=== PATIENT | female | born 2000 | race African-American/Black ===

== ENCOUNTER 2019-08-02 01:15 | Emergency (ER) | payer MEDICAID ==
--- NOTE | 2019-08-02 03:42 | ED ---
Head Injury - HPI Summary HPI Summary: Patient is a 18 y/o F presenting to [facility] with complaints of head injury. She states that she was ice-skating earlier today and attempted to do a trick. She fell backwards, landed on her buttock, and struck the back of her head. Incident occurred around 2245 08/01/19. She denies LOC and reports that she got back up immediately. Patient states that her mom advised her to come to ED. Some nausea noted. She denies neck pain, memory loss, difficulty with ambulation and vomiting. Patient is not on blood thinners. On triage, pain is rated 2/10, nothing is noted to aggravate/alleviate Sx. Home medications and allergies are reviewed. - History Of Current Complaint Chief Complaint: EDHeadInjury Stated Complaint: HEAD INJURY PER PT Time Seen by Provider: 08/02/19 03:21 Hx Obtained From: Patient Mechanism Of Injury: Fall From A Standing Position Onset/Duration: Still Present Onset of Pain: Prior to Arrival Severity Initially: Mild Pain Intensity: 2 Pain Scale Used: 0-10 Numeric Location of Head Injury: Occipital Location: Discrete At: - posterior head Aggravating Factor(s): Other: - nothing Alleviating Factor(s): Other: - nothing Associated Signs And Symptoms: Nausea, Other: - negative - LOC, neck pain, memory loss, difficulty with ambulation and vomiting; positive - fall, head injury - Allergies/Home Medications Allergies/Adverse Reactions: Allergies Allergy/AdvReac Type Severity Reaction Status Date / Time No Known Allergies Allergy Verified 08/02/19 01:18 Home Medications: Home Medications Albuterol HFA INHALER* [Ventolin HFA Inhaler*] 1 puff INH Q4H PRN 08/02/19 [ History Confirmed 08/02/19] Fluticasone Propionate Diskus [Flovent Diskus] 2 puff IH SEE INSTRUCTIONS PRN [History Confirmed 08/02/19] PMH/Surg Hx/FS Hx/Imm Hx Respiratory History: Reports: Hx Asthma Sensory History: Denies: Hx Legally Blind, Hx Deafness Opthamlomology History: Denies: Hx Legally Blind Infectious Disease History: No Infectious Disease History: Denies: Traveled Outside the [place] in Last 30 Days - Family History Known Family History: Negative: Blood Disorder - Social History Alcohol Use: Occasionally Substance Use Type: Reports: Marijuana Smoking Status (MU): Current Some Day Smoker Review of Systems Positive: Nausea. Negative: Vomiting Musculoskeletal: Other - positive - fall; negative - neck pain Neurological: Other - positive - head injury; negative - memory loss, difficulty with ambulation All Other Systems Reviewed And Are Negative: Yes Physical Exam - Summary Physical Exam Summary: Appearance: Well-appearing, Well-nourished, lying in bed comfortably Skin: Warm, dry, no obvious rash Eyes: sclera anicteric, no conjunctival pallor ENT: mucous membranes moist, pharynx appears normal Neck: Supple, nontender Respiratory: Clear to auscultation, no signs of respiratory distress Cardiovascular: Normal S1, S2. No murmurs. Normal distal pulses in tibial and radial bilaterally. Abdomen: Soft, nontender, normal active bowel sounds present Musculoskeletal: Normal, Strength/ROM Intact Neurological: A&Ox3, awake and alert, mentation is normal, speech is fluent and appropriate Psychiatric: affect is normal, does not appear anxious or depressed Triage Information Reviewed: Yes Vital Signs On Initial Exam: Initial Vitals Temp Pulse Resp BP Pulse Ox 97.6 F 80 16 123/103 99 08/02/19 01:17 08/02/19 01:17 08/02/19 01:17 08/02/19 01:17 08/02/19 01:17 Vital Signs Reviewed: Yes Diagnostics - Vital Signs Vital Signs Temp Pulse Resp BP Pulse Ox 08/02/19 01:17 97.6 F 80 16 123/103 99 - Laboratory Lab Statement: Any lab studies that have been ordered have been reviewed, and results considered in the medical decision making process. Head Injury Course/Dx Course Of Treatment: Patient is a 18 y/o F presenting to [facility] with complaints of head injury. She states that she was ice-skating earlier today and attempted to do a trick. She fell backwards, landed on her buttock, and struck the back of her head. Incident occurred around 2245 08/01/19. She denies LOC and reports that she got back up immediately. Patient states that her mom advised her to come to ED. Some nausea noted. She denies neck pain, memory loss, difficulty with ambulation and vomiting. Patient is not on blood thinners. Physical exam was unremarkable. Patient's Sx were discussed with patient. Patient is alert and oriented x3 and reports no vomiting or photophobia. No neurological deficits noted. Patient was discharged to home. Strict return precautions were given. She is agreeable with discharge. - Diagnoses Provider Diagnoses: Head injury Discharge ED - Sign-Out/Discharge Documenting (check all that apply): Patient Departure - discharge Patient Received Moderate/Deep Sedation with Procedure: No - Discharge Plan Condition: Stable Disposition: HOME Patient Education Materials: Head Injury (ED) Referrals: Care [facility] [Outside] - If Needed No Primary Care Phys,NOPCP [Primary Care Provider] - - Billing Disposition and Condition Condition: STABLE Disposition: Home - Attestation Statements Document Initiated by Mia: Yes Documenting Scribe: MERCY SOARES Provider For Whom Mia is Documenting (Include Credential): MADAN DARNELL MD Scribe Attestation: MERCY Felix, scribed for MADAN DARNELL MD on 08/06/19 at 0613. Scribe Documentation Reviewed: Yes Provider Attestation: The documentation as recorded by the MERCY mcgovern accurately reflects the service I personally performed and the decisions made by MADAN dorsey MD Status of Scribe Document: Viewed
[2019-08-02 03:48] VITALS: BP 117/75
== END 2019-08-02 03:44 | disposition home or self-care (01) ==
LOC: ED 01:15
DX: S09.90XA Unspecified injury of head, initial encounter (principal); W00.0XXA Fall on same level due to ice and snow, initial encounter; Y93.21 Activity, ice skating; Y92.330 Ice skating rink (indoor) (outdoor) as the place of occurrence of the external cause; J45.909 Unspecified asthma, uncomplicated; F17.200 Nicotine dependence, unspecified, uncomplicated
CPT/HCPCS: 99282